=== PATIENT | male | born 2005 | race Caucasian/White ===

== ENCOUNTER 2023-04-18 19:17 | Emergency (ER) | payer MEDICAID ==
[~2023-04-18] VITALS: Ht 172.7 cm; Wt 65.8 kg
[2023-04-18 19:35] VITALS: BP_SYST 125; PULSE 70; RESP 17; TEMP 97.8; O2SAT 100
[2023-04-18] MEDS ORDERED: IBUP-1969 PO (20:24)
[2023-04-18 20:31] VITALS: BP_SYST 121; PULSE 62; RESP 17; TEMP 97.8; O2SAT 100
== END 2023-04-18 20:31 | disposition home or self-care (01) ==
LOC: SED 19:17
DX: S46.812A Strain of other muscles, fascia and tendons at shoulder and upper arm level, left arm, initial encounter (principal); Z79.899 Other long term (current) drug therapy; V00.131A Fall from skateboard, initial encounter; Y93.51 Activity, roller skating (inline) and skateboarding; Y92.89 Other specified places as the place of occurrence of the external cause; Y99.8 Other external cause status
CPT/HCPCS: 73030; 99283